=== PATIENT | male | born 1950 | race Two or more races ===

== ENCOUNTER 2023-09-11 09:59 | Outpatient (CLI) | payer OTHER | END 2023-09-11 10:06 | disposition home or self-care (01) | LOC: TOM 09:59 | DX: R10.84 Generalized abdominal pain (principal) ==

== ENCOUNTER 2023-11-07 15:01 | Outpatient (CLI) | payer OTHER | END 2023-11-07 15:04 | disposition home or self-care (01) | LOC: EKG 15:01 | PROVIDERS: ATTEND Surgery | DX: I10 Essential (primary) hypertension (principal) ==

== ENCOUNTER 2023-11-13 11:01 | Outpatient (CLI) | payer OTHER | END 2023-11-13 11:03 | disposition home or self-care (01) | LOC: TOM 11:01 | PROVIDERS: ATTEND Internal Medicine | DX: J44.9 Chronic obstructive pulmonary disease, unspecified (principal); R91.1 Solitary pulmonary nodule ==

== ENCOUNTER 2023-12-16 04:35 | Day surgery (SDC) | payer OTHER ==
[2023-12-03 12:16] LABS: PH,URINE 6.5 (5.0-8.0); URINE BILIRRUBIN Negative (NEGATIVE); URINE BLOOD Negative; URINE COLOR Yellow; URINE GLUCOSE Negative (NEGATIVE); URINE KETONE Negative (NEGATIVE); URINE LEUKOCYTE Negative; URINE NITRATE Negative; URINE PROTEIN Negative (NEGATIVE); URINE UROBILINOGEN 0.2 E.U./dl
[2023-12-03 12:23] LABS: HEMOGLOBIN 15.9 g/dL (13-16.00); MEAN CELL VOLUME 91.1 fL (80.0-100.00); MEAN CORPUSCULAR HEMOGLOBIN 30.9 pg (27.00-32.0); MEAN CORPUSCULAR HGB CONC 33.9 g/dl (32.0-36.0); PLATELET COUNT 267 K/uL (150-450); RED BLOOD COUNT 5.16 M/uL (4.00-6.00); RED CELL DISTRIBUTION WIDTH 14.9 % (11.5-14.5)
[2023-12-03 12:32] LABS: URINE APPEARANCE CLEAR; URINE BACTERIA 1.2 uL (0.0-1933); URINE EPITHELIAL CELLS 0.4 uL (0.0-38.8); URINE RBC 0.3 uL (0.0-20.8); URINE WBC 0.9 uL (0.0-23.2)
[2023-12-03 12:54] LABS: INR 1.06; PARTIAL THROMBOPLASTIN TIME 30.5 SECONDS (22.0-34.0); PROTHROMBIN TIME 11.5 SECONDS (9.0-11.5)
[2023-12-03 13:16] LABS: BILIRUBIN TOTAL 0.78 mg/dL (0.3-1.2); CALCIUM 9.6 mg/dL (8.5-10.1); CREATININE SERUM 1.3 mg/dL (0.70-1.30); GFR 54.26; GLOBULINA 3.8 G/DL (2.4-3.5); POTASSIUM 4.11 mEq/L (3.5-5.1); TOTAL PROTEIN 7.8 gm/dL (6.4-8.2)
[~2023-12-16 04:35] MED LIST: ATORVASTATIN CA20 MG PO; COZAAR25 MG PO
[2023-12-16] MEDS ORDERED: CEFAZOLIN SODIUM 1,000 MG VIAL IV SCH (14:00)
[2023-12-16] MEDS ORDERED: MORPHINE SULFATE 4 MG/ML VIAL IV ONE ×2 (15:45→16:30)
== END 2023-12-16 17:30 | disposition home or self-care (01) ==
LOC: CIR.AMB 04:35
PROVIDERS: Internal Medicine; ATTEND Surgery
DX: K43.0 Incisional hernia with obstruction, without gangrene (principal)